=== PATIENT | female | born 1985 | race Caucasian/White ===

== ENCOUNTER 2025-01-24 00:05 | Emergency (ER) | payer OTHER ==
[~2025-01-24] VITALS: Ht 170.2 cm; Wt 81.6 kg
[2025-01-24 00:36] LABS: PLATELET COUNT (AUTO) 294 K/uL (179-408); RED BLOOD CELL COUNT(AUTO) 4.78 MIL/uL (3.63-4.92); RED CELL DISTRIBUTION WIDTH 15.0 % (12.3-17.7); WHITE BLOOD COUNT (AUTO) 8.4 K/uL (3.8-11.8)
[2025-01-24] MEDS: IV NORMAL SALINE 1000 ML BAG IV ONE (00:37)
[2025-01-24 00:42] LABS: CREATININE 0.6 mg/dL (0.6-1.3); SODIUM SERUM 138.0 mmol/L (136-145); UREA NITROGEN, BLOOD 13.0 mg/dL (7-18)
[2025-01-24 00:48] LABS: ASPARTATE AMINOTRANSFERASE 31.0 U/L (15-37); TOTAL PROTEIN, SERUM 8.0 g/dL (6.4-8.2)
[2025-01-24 01:05] LABS: ABG BASE EXCESS 0.1 mmol/L (-2.0-3.0); ABG HCO3 22.5 mmol/L (21.0-28.0); ABG PCO2 30.0 mmHg (32.0-45.0); ABG PH 7.493 (7.350-7.450); ABG PO2 105.0 mmHg (83.0-108.0); ABG SITE RIGHT RADIAL; ABG TOTAL HEMOGLOBIN 12.6 G/dL (12.0-16.0); AaDO2 98.2 mmHg; FIO2 21.0 %
[2025-01-24 02:00] VITALS: BP 120/82
[2025-01-24 02:53] VITALS: BP 122/79; O2SAT 98
== END 2025-01-24 02:59 | disposition home or self-care (01) ==
LOC: ER 00:36
DX: R06.02 Shortness of breath (principal); R53.83 Other fatigue; F17.210 Nicotine dependence, cigarettes, uncomplicated
CPT/HCPCS: 99284; 96360; 71045; 80053; 83880; 85025; 36415; 82803; 36600 ×2; J7040; A4606; A4663